=== PATIENT | female | born 2000 | race Caucasian/White ===

== ENCOUNTER 2024-02-11 11:06 | Emergency (ER) | payer BC, SELFPAY ==
[2024-02-11 11:26] VITALS: BP 124/73; PULSE 73; RESP 16; TEMP 36.9; O2SAT 98; BMI 19.9
--- NOTE | 2024-02-11 11:38 | ED.ABDPAIN ---
HPI - Abdominal Pain <Nichol Alba PA-C - Last Filed: 02/11/24 19:18> General Chief Complaint: Abdominal Pain Stated Complaint: abd pain, sent by [facility] Time Seen by Provider: 02/11/24 11:38 History of Present Illness HPI narrative: Dora Cullen is a pleasant 23-year-old female with no reported past medical history who presents to the emergency department for right lower quadrant abdominal pain x2 weeks. Patient was initially seen in the walk-in clinic but was sent to the ER for further workup. Patient reports her LMP was 01/24/2024 and lasted longer than normal, bleeding stopped 1 week ago. States that while she was on her cycle, she developed dull but constant right lower quadrant/pelvic pain. This pain improves with Tylenol and ibuprofen but never resolves completely. States that the pain feels similar to when she had an IUD displaced about 2 years ago. She had a Mirena IUD replaced 1.5 years ago at a [facility] in [place], [place]. She also reports a history of ovarian cyst. States that she had 1 random episode of nausea and vomiting but had a negative home test. She denies any abnormal vaginal discharge and is not concerned for sexually transmitted infections. She denies fevers, chills, chest pain, shortness of breath, dysuria, hematuria. She has never been . Currently sexually active with 1 male partner. Related Data Previous Rx's Medication Instructions Recorded hydrocodone 5 mg-acetaminophen 325 1 tab PO Q4-6H PRN pain #4 tabs 02/11/24 mg tablet Allergies Allergy/AdvReac Type Severity Reaction Status Date / Time No Known Drug Allergies Allergy Verified 02/11/24 11:31 Review of Systems <Nichol Alba PA-C - Last Filed: 02/11/24 19:18> Review of Systems ROS Unobtainable: All systems reviewed & are unremarkable except as noted in HPI and below Patient History <Nichol Alba PA-C - Last Filed: 02/11/24 19:18> Social History Smoking Status: Never smoker Smoking Status: Never smoker Substance Use Type: marijuana Exam <Nichol Alba PA-C - Last Filed: 02/11/24 19:18> Narrative Exam Narrative: GENERAL: 23 year old patient appears stated age. Well-developed patient, in no acute distress. HEAD: Atraumatic. Normocephalic. EYES: PERRL. Extraocular motions intact. No scleral icterus. No injection or drainage. ENT: Nose without bleeding, purulent drainage. Airway patent. NECK: Trachea midline. Cervical ROM intact. CARDIOVASCULAR: Regular rate and rhythm. RESPIRATORY: ?Nonlabored respirations. ?Speaking in clear, full sentences. ?Clear to auscultation. Breath sounds equal bilaterally. No wheezes, rales, or rhonchi. ? GASTROINTESTINAL: Abdomen soft, non-tender, nondistended. Reported pain in right lower quadrant/suprapubic region however nonreproducible tenderness. No rebound or guarding. Positive bowel sounds. PELVIC: Patient gave verbal consent for pelvic exam. Female nurse workforce services representative present for the exam. Patient had normal-appearing external genitalia with no lesions. Scant white discharge present vaginal vault. No IUD strings visualized. No abnormal bleeding or lesions on the cervix. Mild tenderness to palpation with bimanual examination in the right adnexal region. No cervical motion tenderness. EXTREMITIES: No edema or joint tenderness. BACK: Nontender without deformity or crepitance. No flank tenderness. NEURO: AOx3. ?Clear speech. ?Moves all 4 extremities appropriately. SKIN: No rash or erythema of visible areas Initial Vital Signs Initial Vital Signs: Vital Signs Temperature 98.4 F 02/11/24 11:26 Pulse Rate 73 02/11/24 11:26 Respiratory Rate 16 02/11/24 11:26 Blood Pressure 124/73 02/11/24 11:26 Pulse Oximetry 98 02/11/24 11:26 Oxygen Delivery Method Room Air 02/11/24 11:26 <Joey Perez DO - Last Filed: 02/12/24 07:01> Initial Vital Signs Initial Vital Signs: Vital Signs Temperature 98.4 F 02/11/24 11:26 Pulse Rate 73 02/11/24 11:26 Respiratory Rate 16 02/11/24 11:26 Blood Pressure 124/73 02/11/24 11:26 Pulse Oximetry 98 02/11/24 11:26 Oxygen Delivery Method Room Air 02/11/24 11:26 Course <Nichol Alba PA-C - Last Filed: 02/11/24 19:18> Orders Ordered: Discontinued Medications Ketorolac Tromethamine (Ketorolac 30 Mg/Ml Vial) 15 mg IV NOW ONE Stop: 02/11/24 12:00 Last Admin: 02/11/24 12:36 Dose: 15 mg Documented By: KEYANA Ondansetron HCl (Ondansetron 4 Mg/2 Ml Inj) 4 mg IV NOW ONE Stop: 02/11/24 12:00 Last Admin: 02/11/24 12:36 Dose: 4 mg Documented By: KEYANA Consultations Consultation #1: Discussed case with OBGYN superintendent nonselling Dr. Orozco. We discussed the patient's symptoms, lab work, imaging results. He plans to remove the patient's IUD in the clinic tomorrow. The patient's information was provided to his staff and the nurses will call the patient this evening to schedule the appointment. After shared decision-making, determined that additional CT imaging not warranted at this time. Time: 15:25 Vital Signs Vital signs: Vital Signs - 8 hr 02/11/24 11:26 02/11/24 15:48 Temperature 98.4 F Pulse Rate 73 80 Respiratory Rate 16 14 Blood Pressure 124/73 115/62 Pulse Oximetry 98 98 Oxygen Delivery Method Room Air Room Air <Joey Perez DO - Last Filed: 02/12/24 07:01> Orders Ordered: Discontinued Medications Ketorolac Tromethamine (Ketorolac 30 Mg/Ml Vial) 15 mg IV NOW ONE Stop: 02/11/24 12:00 Last Admin: 02/11/24 12:36 Dose: 15 mg Documented By: KEYANA Ondansetron HCl (Ondansetron 4 Mg/2 Ml Inj) 4 mg IV NOW ONE Stop: 02/11/24 12:00 Last Admin: 02/11/24 12:36 Dose: 4 mg Documented By: KEYANA Vital Signs Vital signs: Vital Signs - 8 hr 02/11/24 11:26 02/11/24 15:48 Temperature 98.4 F Pulse Rate 73 80 Respiratory Rate 16 14 Blood Pressure 124/73 115/62 Pulse Oximetry 98 98 Oxygen Delivery Method Room Air Room Air MDM - Abdominal Pain <Nichol Alba PA-C - Last Filed: 02/11/24 19:18> Lab Data Attestation: I reviewed the patient's lab results. 02/11/24 11:51 02/11/24 11:51 Labs: Lab Results 02/11/24 02/11/24 Range/Units 11:34 11:51 WBC 5.9 (4.5-11.0) X10^3/uL RBC 4.69 (4.0-5.2) X10^6/uL Hgb 14.5 (12.0-16.0) g/dL Hct 42.1 (36-46) % MCV 89.6 (80-100) fL MCH 30.9 (26-34) PG MCHC 34.5 (30-36) % RDW 12.6 (11.6-14.8) % Plt Count 284 (150-400) X10^3/uL Neut % (Auto) 67.0 (50-75) % Lymph % (Auto) 25.6 (25-40) % Ellis % (Auto) 5.1 (3-14) % Eos % (Auto) 1.7 L (2-4) % Baso % (Auto) 0.6 (0-2) % Neut # (Auto) 4000 (7082-0355) /uL Lymph # (Auto) 1500 (4314-0244) /uL Ellis # (Auto) 300 (0-900) /uL Eos # (Auto) 100 (0-450) /uL Baso # (Auto) 0 (0-100) /uL Sodium 137 (137-145) mmol/L Potassium 4.1 (3.4-5.1) mmol/L Chloride 104 (98-107) mmol/L Carbon Dioxide 24 (22-32) mmol/L BUN 12 (7-17) mg/dL Creatinine 0.65 (0.52-1.04) mg/dL Estimated GFR > 60 (>60) mL/min BUN/Creatinine Ratio 18.5 (6-22) Glucose 93 (70-100) mg/dL Calcium 9.4 (8.4-10.2) mg/dL Total Bilirubin 1.1 (0.2-1.3) mg/dL AST 27 (14-36) IU/L ALT 19 (<35) IU/L Alkaline Phosphatase 43 (38-126) U/L Total Protein 7.1 (6.3-8.2) g/dL Albumin 4.7 (3.5-5.0) g/dL Globulin 2.4 (1.7-4.1) g/dL Albumin/Globulin Ratio 2.0 (1.0-2.8) Lipase 67 (23-300) U/L Ur Chlamydia DNA (PCR) Not detected N gonorrhoeae DNA (PCR) Not detected Point of care testing: Point of Care Testing Test Results Negative Urine Dip Bedside Urine Glucose Negative Bedside Urine Bilirubin - Negative Bedside Urine Ketone - Negative Urine Specific [place] 1.005 Bedside Urine Occult Blood - Negative Bedside Urine pH 8.0 Bedside Urine Protein - Negative Bedside Urine Urobilinogen - Negative Bedside Urine Nitrite - Negative Bedside Urine Leukocytes - Negative Esterase Imaging Data Pelvic US: My Impression: Agree with radiologist impression as documented. Radiologist's Impression: PROCEDURE: US PELVIC COMPLETE INDICATIONS: RLQ pain; IUD TECHNIQUE: Real-time scanning was performed of the pelvic organs, with image documentation. Additional endovaginal scanning was necessary due to incomplete visualization of the adnexal and endometrial structures by transabdominal scanning. COMPARISON: None. FINDINGS: Uterus: Uterus is anteverted and normal in size at 8.3 x 2.2 x 3.1 cm. The myometrium is homogeneous. The endometrium measures 1.4 mm combined thickness. Intrauterine device is noted in the lower uterine segment with crossbar still Mario and extending into the myometrium. The right cross-body are is approximately 1 millimeter from outer periphery of uterine wall. The tip of left crossbar is 2.1 millimeter from outer periphery of uterine wall. Ovaries: The right ovary m is not visualized due to overlying bowel gas. The left ovary measures 3.1 x 1.9 x 1.7 cm, with a calculated ovarian volume of 5.0 cc. Less than 12 follicles can be seen in left ovary. No adnexal masses are seen. Other: small amount of free fluid Pr is seen in right adnexa. ominent uterine vessels and coronary vessels are noted in lower pelvis and bilateral adnexa measures up to 9.2 millimeters in diameter on the right side and up to 8.2 millimeters in diameter on the left side. IMPRESSION: 1. Intrauterine device is seen within the lower uterine segment with side bars extending into the myometrium as described above concerning for malposition of the IUD. Price Checker correlation is recommended. No gross endometrial mass or fluid. 2. Right ovary is not visualized. Normal appearing left ovary. No adnexal mass. No evidence of ovarian torsion. Small amount of free fluid is seen in right adnexa. 3. Prominent pelvic vessels bilaterally which can be seen associated with clinical diagnosis of pelvic congestion syndrome. MDM Narrative Medical decision making narrative: Otherwise healthy 23-year-old female with Mirena IUD in place presents to the emergency department for dull but constant lower abdominal pain x2 weeks. Differential diagnosis includes but is not limited to appendicitis, ovarian torsion, ovarian cyst, IUD abnormal placement, UTI, PID, uterine fibroid, etc. On exam patient is in no acute distress, nontoxic-appearing, all vital signs within normal limits, abdominal exam benign. We will obtain abdominal labs and pelvic ultrasound further evaluate for ovarian or uterine abnormality. Patient would like a pelvic exam to have her IUD strings checked and for swabs. After shared decision-making, we will hold off on CT scan now as her exam is benign and vitals normal. Labs reassuring with normal WBC count of 5.9, normal hemoglobin 14.5 hematocrit 42.1. Normal CMP with no electrolyte abnormalities. Normal renal function BUN 12, creatinine 0.65. Wet prep negative for white blood cells, clue cells, yeast, trichomoniasis. Pelvic exam without any abnormal bleeding or lesions. Unable to visualize IUD strings. Mild bimanual tenderness in right adnexa. Pelvic ultrasound reveals intrauterine device extending into the myometrium concern for malposition of the IUD. In addition the patient has prominent pelvic vessels bilaterally which can be seen with pelvic congestion syndrome. The right ovary is not visualized the left ovary is normal. There is a small amount of free fluid seen in the right adnexa. I consulted both the radiologist and the OBGYN on-call. After shared decision-making with OBGYN and the patient, we will not proceed with any additional emergency room intervention or imaging, and the patient will follow up with OBGYN Dr. Orozco tomorrow for IUD removal. The patient was prescribed a very short course of hydrocodone-acetaminophen in preparation for her procedure tomorrow. We discussed very strict ER return precautions including but not limited to new or severe pain, fevers or chills, or any other concerns. Patient is agreeable to the plan and understands the importance of having her IUD removed tomorrow. Patient is stable for discharge at this time. <Joey Perez DO - Last Filed: 02/12/24 07:01> Lab Data Labs: Lab Results 02/11/24 02/11/24 Range/Units 11:34 11:51 WBC 5.9 (4.5-11.0) X10^3/uL RBC 4.69 (4.0-5.2) X10^6/uL Hgb 14.5 (12.0-16.0) g/dL Hct 42.1 (36-46) % MCV 89.6 (80-100) fL MCH 30.9 (26-34) PG MCHC 34.5 (30-36) % RDW 12.6 (11.6-14.8) % Plt Count 284 (150-400) X10^3/uL Neut % (Auto) 67.0 (50-75) % Lymph % (Auto) 25.6 (25-40) % Ellis % (Auto) 5.1 (3-14) % Eos % (Auto) 1.7 L (2-4) % Baso % (Auto) 0.6 (0-2) % Neut # (Auto) 4000 (3163-8445) /uL Lymph # (Auto) 1500 (5747-0551) /uL Ellis # (Auto) 300 (0-900) /uL Eos # (Auto) 100 (0-450) /uL Baso # (Auto) 0 (0-100) /uL Sodium 137 (137-145) mmol/L Potassium 4.1 (3.4-5.1) mmol/L Chloride 104 (98-107) mmol/L Carbon Dioxide 24 (22-32) mmol/L BUN 12 (7-17) mg/dL Creatinine 0.65 (0.52-1.04) mg/dL Estimated GFR > 60 (>60) mL/min BUN/Creatinine Ratio 18.5 (6-22) Glucose 93 (70-100) mg/dL Calcium 9.4 (8.4-10.2) mg/dL Total Bilirubin 1.1 (0.2-1.3) mg/dL AST 27 (14-36) IU/L ALT 19 (<35) IU/L Alkaline Phosphatase 43 (38-126) U/L Total Protein 7.1 (6.3-8.2) g/dL Albumin 4.7 (3.5-5.0) g/dL Globulin 2.4 (1.7-4.1) g/dL Albumin/Globulin Ratio 2.0 (1.0-2.8) Lipase 67 (23-300) U/L Ur Chlamydia DNA (PCR) Not detected N gonorrhoeae DNA (PCR) Not detected Point of care testing: Point of Care Testing Test Results Negative Urine Dip Bedside Urine Glucose Negative Bedside Urine Bilirubin - Negative Bedside Urine Ketone - Negative Urine Specific [place] 1.005 Bedside Urine Occult Blood - Negative Bedside Urine pH 8.0 Bedside Urine Protein - Negative Bedside Urine Urobilinogen - Negative Bedside Urine Nitrite - Negative Bedside Urine Leukocytes - Negative Esterase Discharge Plan Departure Patient Disposition: Home Clinical Impression: Pelvic congestion syndrome Malpositioned intrauterine device (IUD) Qualifiers: Encounter type: initial encounter Qualified Code(s): T83.32XA - Displacement of intrauterine contraceptive device, initial encounter Instructions: DI for Abdominal Pain-Adult Activity Restrictions/Additional Instructions: Please be on the look out for a phone call from Dr. Orozco's office for an appointment tomorrow to have her IUD removed. You may also call the office . Please take 600 mg ibuprofen about 2 hours before your appointment tomorrow. You may also use the prescribed narcotic pain medicine if needed. Please rest, hydrate, return to the ER if you develop any new or worsening symptoms such as increasing pain, fever, chills, etc. Please follow up with your primary care doctor within the next 2-3 days. Return to the emergency department for any new or worsening symptoms, or any other concerns. Thank you for letting me participate in your care, Nichol Alba PA-C Prescriptions: New hydrocodone-acetaminophen 5-325 mg tablet 1 tab PO Q4-6H PRN (Reason: pain) Qty: 4 0RF Referrals: Miscellaneous,DoctorMD [Primary Care Provider] - Anibal Orozco MD [Physician] - (IUD removal) Stand Alone Forms: Patient Portal/API/Survey, Work Release Note ED Sign-out <Joey Perez DO - Last Filed: 02/12/24 07:01> Cosign ED Attending Cosignature Attestation: Dr Perez Co-Sign Statement: I was available for consultation during this patient's emergency department visit. This chart is signed by myself for administrative purposes only. I did not have direct contact with this patient during this visit. They were seen independently by the APC.
--- NOTE | 2024-02-11 11:59 | DI.US.S_ITS ---
PROCEDURE: US PELVIC COMPLETE INDICATIONS: RLQ pain; IUD TECHNIQUE: Real-time scanning was performed of the pelvic organs, with image documentation. Additional endovaginal scanning was necessary due to incomplete visualization of the adnexal and endometrial structures by transabdominal scanning. COMPARISON: None. FINDINGS: Uterus: Uterus is anteverted and normal in size at 8.3 x 2.2 x 3.1 cm. The myometrium is homogeneous. The endometrium measures 1.4 mm combined thickness. Intrauterine device is noted in the lower uterine segment with crossbar still Mario and extending into the myometrium. The right cross-body are is approximately 1 millimeter from outer periphery of uterine wall. The tip of left crossbar is 2.1 millimeter from outer periphery of uterine wall. Ovaries: The right ovary m is not visualized due to overlying bowel gas. The left ovary measures 3.1 x 1.9 x 1.7 cm, with a calculated ovarian volume of 5.0 cc. Less than 12 follicles can be seen in left ovary. No adnexal masses are seen. Other: small amount of free fluid Pr is seen in right adnexa. ominent uterine vessels and coronary vessels are noted in lower pelvis and bilateral adnexa measures up to 9.2 millimeters in diameter on the right side and up to 8.2 millimeters in diameter on the left side. IMPRESSION: 1. Intrauterine device is seen within the lower uterine segment with side bars extending into the myometrium as described above concerning for malposition of the IUD. Progressive Care Nurse correlation is recommended. No gross endometrial mass or fluid. 2. Right ovary is not visualized. Normal appearing left ovary. No adnexal mass. No evidence of ovarian torsion. Small amount of free fluid is seen in right adnexa. 3. Prominent pelvic vessels bilaterally which can be seen associated with clinical diagnosis of pelvic congestion syndrome. We strive to produce accurate, complete, and clear reports of imaging services. To assist us in improving patient care, this report was composed using standard report templates and voice recognition software. Therefore, it may contain abnormal punctuation, insertions and/or omissions. Occasional wrong-word or sound-alike substitutions may occur. Though we review the report and make efforts to correct it, we do recommend that the report be read carefully in proper context to recognize any text inaccuracies. Dictated by: Nathan Morales M.D. on 02/11/2024 at 14:31 Approved by: Nathan Morales M.D. on 02/11/2024 at 14:41
[2024-02-11 12:07] LABS: Add Manual Diff / Slide Review NO; Basophils Absolute Auto 0 /uL (0-100); Basophils Percent Auto 0.6 % (0-2); Eosinophils Absolute Auto 100 /uL (0-450); Eosinophils Percent Auto 1.7 % (2-4); Hematocrit 42.1 % (36-46); Hemoglobin 14.5 g/dL (12.0-16.0); Lymphocytes Absolute Auto 1500 /uL (1100-4500); Lymphocytes Percent Auto 25.6 % (25-40); Mean Corpuscular HGB Conc 34.5 % (30-36); Mean Corpuscular Hemoglobin 30.9 PG (26-34); Mean Corpuscular Volume 89.6 fL (80-100); Monocytes Absolute Auto 300 /uL (0-900); Monocytes Percent Auto 5.1 % (3-14); Neutrophils Absolute Auto 4000 /uL (1500-7000); Platelet Count 284 X10^3/uL (150-400); Red Blood Cell Count 4.69 X10^6/uL (4.0-5.2); Red Cell Distribution Width 12.6 % (11.6-14.8); White Blood Cell Count 5.9 X10^3/uL (4.5-11.0)
[2024-02-11 12:25] LABS: Alanine Aminotransferase 19 IU/L (<35); Albumin 4.7 g/dL (3.5-5.0); Alkaline Phosphatase 43 U/L (38-126); Aspartate Aminotransferase 27 IU/L (14-36); BUN Creatinine Ratio 18.5 (6-22); Bilirubin Total 1.1 mg/dL (0.2-1.3); Blood Urea Nitrogen 12 mg/dL (7-17); Calcium 9.4 mg/dL (8.4-10.2); Carbon Dioxide 24 mmol/L (22-32); Chloride 104 mmol/L (98-107); Estimated Glomerular Filt Rate > 60 mL/min (>60); Globulin 2.4 g/dL (1.7-4.1); Glucose 93 mg/dL (70-100); HEMOLYSIS 16 (0-50); Lipase 67 U/L (23-300); Potassium 4.1 mmol/L (3.4-5.1); Sodium 137 mmol/L (137-145); Total Protein 7.1 g/dL (6.3-8.2)
[2024-02-11] MEDS: ONDANSETRON 4 MG/2 ML INJ IV (12:36)
[2024-02-11] MEDS: KETOROLAC 30 MG/ML VIAL 15 MG IV (12:36)
--- NOTE | 2024-02-11 13:10 | PC.NURSE ---
Standby assist/medical lab specialist for pelvic exam. Pt tolerated well w/o complication. swabs obtained and sent per order
[2024-02-11 14:48] LABS: Urine N gonorrhoeae NOT DETECTED
[2024-02-11 14:50] LABS: Urine Chlamydia NOT DETECTED
[2024-02-11 15:48] VITALS: BP 115/62; PULSE 80; RESP 14; O2SAT 98
[2024-02-15 11:36] LABS: Chlamydia trachomatis Negative (Negative); Mycoplasma genitalium Negative (Negative); Neisseria gonorrhoeae Negative (Negative)
== END 2024-02-11 15:51 | disposition home or self-care (01) ==
PROVIDERS: Emergency Medicine; Emergency Provider Physician Assistant
DX: T83.32XA Displacement of intrauterine contraceptive device, initial encounter (principal); N94.89 Other specified conditions associated with female genital organs and menstrual cycle; Z87.42 Personal history of other diseases of the female genital tract
CPT/HCPCS: 76830; 76856; 80053; 81003; 81025; 83690; 85025; 87210; 87491; 87563; 87591; 93975; 96374; 96375; 99283; 99284; J1885; J2405

== ENCOUNTER → 2025-01-17 13:49 | Outpatient (CLI) | payer BC, SELFPAY ==
--- NOTE | 2025-01-17 13:51 | DI.US.S_ITS ---
PROCEDURE: US PELVIC COMPLETE INDICATIONS: secondary dysmenorrhea, ?bicornuate uterus TECHNIQUE: Real-time scanning was performed of the pelvic organs, with image documentation. Additional endovaginal scanning was necessary due to incomplete visualization of the adnexal and endometrial structures by transabdominal scanning. COMPARISON: [facility], , US PELVIC COMPLETE, 02/11/2024, 12:20. FINDINGS: Uterus: Uterus is anteverted and normal in size at 8.4 x 2.9 x 4.0 cm. The myometrium is homogeneous. The endometrium measures 5 mm combined thickness. Ovaries: The right ovary measures 3.6 x 5 7 x 3.3 cm, with a calculated ovarian volume of 35.6 cc. The left ovary measures 1.7 x 2.8 x 1.6 cm, with a calculated ovarian volume of 4.2 cc. The right ovary demonstrates a complex structure with internal reticular echogenicity and peripheral solid component, but without internal vascularity demonstrated, measuring 4.1 x 2.9 x 3.3 cm. Less than 12 follicles can be seen in each ovary. Other: No pathologic free abdominal or pelvic fluid. Prominent pelvic vessels are again demonstrated bilaterally. IMPRESSION: 1. Complex right ovarian cystic lesion without internal vascularity, measuring 4.1 cm, favored to reflect a hemorrhagic cyst. Recommend follow-up ultrasound of the pelvis in 6-12 weeks to assess for resolution or interval change. 2. Prominent pelvic vessels are again demonstrated, which may be seen with a clinical diagnosis of pelvic congestion syndrome. We strive to produce accurate, complete, and clear reports of imaging services. To assist us in improving patient care, this report was composed using standard report templates and voice recognition software. Therefore, it may contain abnormal punctuation, insertions and/or omissions. Occasional wrong-word or sound-alike substitutions may occur. Though we review the report and make efforts to correct it, we do recommend that the report be read carefully in proper context to recognize any text inaccuracies. Dictated by: Bharath Salmeron M.D. on 01/17/2025 at 17:31 Approved by: Bharath Salmeron M.D. on 01/17/2025 at 17:38
== END ==
LOC: US 13:51
PROVIDERS: PCP Nurse Practitioner Family; Referring Provider Obstetrics & Gynecology; Visit Provider Obstetrics & Gynecology
DX: N94.5 Secondary dysmenorrhea (principal)
CPT/HCPCS: 76830; 76856; 93975